=== PATIENT | female | born 1995 | race Caucasian/White ===

== ENCOUNTER 2016-10-18 07:43 | Emergency (ER) | payer SELFPAY ==
[~2016-10-18 07:43] MED LIST: CYCLOBENZAPRINE5 M1 PO; DICLOFENAC POTA50 M1 PO; NO HOME MEDICATION XX; ZANTAC150 M1 PO; ZOFRAN ODT4 MG PO; ZYRTEC10 M7 PO
[2017-02-07] MEDS ORDERED: MELATONIN1 M2 PO (21:55)
[2017-02-07] MEDS ORDERED: B-12500 MC1 PO (21:56)
[2017-02-08] MEDS ORDERED: NORCO 5/3251 TAB PO (00:35)
[2017-02-08] MEDS ORDERED: ZOFRAN4 M2 PO (00:35)
== END 2016-10-18 08:55 ==
LOC: EDMED 07:43
PROC: 2W3RXYZ Immobilization of Left Lower Leg using Other Device (ICD-10-PCS; principal; 2016-10-18)
DX: M25.562 Pain in left knee (principal); Z87.891 Personal history of nicotine dependence

== ENCOUNTER 2016-11-19 03:28 | Emergency (ER) | payer SELFPAY ==
[2016-11-19] MEDS ORDERED: VENTOLIN HFA18 G2 PO (03:35)
[2017-02-07] MEDS ORDERED: MELATONIN1 M2 PO (21:55)
[2017-02-07] MEDS ORDERED: B-12500 MC1 PO (21:56)
[2017-02-08] MEDS ORDERED: NORCO 5/3251 TAB PO (00:35)
[2017-02-08] MEDS ORDERED: ZOFRAN4 M2 PO (00:35)
== END 2016-11-19 04:50 ==
LOC: EDMED 03:28
DX: M94.0 Chondrocostal junction syndrome [Tietze] (principal); F41.9 Anxiety disorder, unspecified; F32.9 Major depressive disorder, single episode, unspecified; J45.909 Unspecified asthma, uncomplicated; Z79.51 Long term (current) use of inhaled steroids; Z79.899 Other long term (current) drug therapy; F17.200 Nicotine dependence, unspecified, uncomplicated
CPT/HCPCS: J1885

== ENCOUNTER 2016-12-13 09:11 | Emergency (ER) | payer SELFPAY ==
[~2016-12-13 09:11] MED LIST changes: +VENTOLIN HFA18 G2 PO
[2016-12-13] MEDS ORDERED: CODEINE-GUAIFE120 M1 PO (10:21)
[2017-02-07] MEDS ORDERED: MELATONIN1 M2 PO (21:55)
[2017-02-07] MEDS ORDERED: B-12500 MC1 PO (21:56)
[2017-02-08] MEDS ORDERED: ZOFRAN4 M2 PO (00:35)
[2017-02-08] MEDS ORDERED: NORCO 5/3251 TAB PO (00:35)
== END 2016-12-13 10:27 ==
LOC: EDMED 09:11
DX: J06.9 Acute upper respiratory infection, unspecified (principal); F41.9 Anxiety disorder, unspecified; F32.9 Major depressive disorder, single episode, unspecified; F17.200 Nicotine dependence, unspecified, uncomplicated